=== PATIENT | male | born 1960 | race Caucasian/White ===

== ENCOUNTER → 2017-05-17 | Outpatient (CLI) | payer MEDICARE ==
[~2017-05-17] MED LIST: OXYC15TA76 PO; OXYC1TAB16 PO; PERC5TAB12 PO
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
== END ==
LOC: M PAIN 13:20
PROVIDERS: ATTEND Nurse Practitioner Family
DX: G89.21 Chronic pain due to trauma (principal); M25.562 Pain in left knee; K46.9 Unspecified abdominal hernia without obstruction or gangrene; F17.210 Nicotine dependence, cigarettes, uncomplicated; Z79.891 Long term (current) use of opiate analgesic

== ENCOUNTER 2017-06-01 16:14 | Emergency (ER) | payer MEDICARE ==
[~2017-06-01] VITALS: Ht 177.8 cm; Wt 79.6 kg
[2017-06-01] MEDS ORDERED: OXYC15TA76 PO (16:28)
[2017-06-01] MEDS ORDERED: OXYC1TAB16 PO (17:25)
[2017-06-01 17:39] VITALS: BP 130/83
== END 2017-06-01 17:54 | disposition home or self-care (01) ==
LOC: M ED 16:14
DX: Z76.0 Encounter for issue of repeat prescription (principal); G89.29 Other chronic pain; M25.562 Pain in left knee; F17.210 Nicotine dependence, cigarettes, uncomplicated

== ENCOUNTER 2017-06-13 07:14 | Emergency (ER) | payer MEDICARE ==
[~2017-06-13] VITALS: Ht 177.8 cm; Wt 79.5 kg
[~2017-06-13 07:14] MED LIST changes: -PERC5TAB12 PO
[2017-06-13 07:29] VITALS: BP 128/74
[2017-06-13] MEDS ORDERED: PERC5TAB12 PO (08:01)
== END 2017-06-13 08:00 | disposition home or self-care (01) ==
LOC: M ED 07:14
DX: Z76.0 Encounter for issue of repeat prescription (principal); G89.29 Other chronic pain; M25.562 Pain in left knee; F17.210 Nicotine dependence, cigarettes, uncomplicated

== ENCOUNTER 2021-02-13 11:12 | Emergency (ER) | payer MEDICARE ==
[~2021-02-13] VITALS: Ht 177.8 cm; Wt 86.4 kg
[~2021-02-13 11:12] MED LIST changes: +OXYC-1 PO; +OXYC10TA3 PO; -OXYC15TA76 PO; -OXYC1TAB16 PO; +PERC5TAB12 PO
[2021-02-13] MEDS ORDERED: HYDR7.5T66 PO (11:25)
[2021-02-13] MEDS ORDERED: LIDOCAINE 2% W/EPINEPHRINE 20ML VIAL **PRES FREE INJ ONE (13:00)
[2021-02-13] MEDS ORDERED: BOOSTRIX/ADACEL VACCINE (DIPHTH/PERTUSS/ACELL/TETANUS) 0.5ML SYR IM ONE (13:00)
[2021-02-13] MEDS ORDERED: LIDOCAINE 2% W/EPINEPHRINE 20ML VIAL **PRES FREE As Ordered ONE (13:01)
[2021-02-13 13:30] VITALS: BP 111/69
[2021-02-13] MEDS ORDERED: CEPH500T PO (13:37)
[2021-02-13] MEDS ORDERED: NS 500 ML IV ONE (13:50)
== END 2021-02-13 13:53 | disposition home or self-care (01) ==
LOC: M ED 11:12
DX: S41.112A Laceration without foreign body of left upper arm, initial encounter (principal); W27.0XXA Contact with workbench tool, initial encounter; Y92.9 Unspecified place or not applicable; Y93.9 Activity, unspecified; Y99.9 Unspecified external cause status; G89.29 Other chronic pain; F17.200 Nicotine dependence, unspecified, uncomplicated

== ENCOUNTER → 2022-10-12 | Outpatient (CLI) | payer MEDICARE ==
[~2022-10-12] MED LIST changes: +BACT800T5 PO; +CEPH500T PO; +HYDR-4278 PO
== END ==
LOC: M RAD 08:13
PROVIDERS: ATTEND Family Medicine
DX: R79.89 Other specified abnormal findings of blood chemistry (principal)

== ENCOUNTER → 2022-10-15 | Outpatient (CLI) | payer MEDICARE | LOC: M RAD 12:54 | PROVIDERS: ATTEND Family Medicine | DX: M47.816 Spondylosis without myelopathy or radiculopathy, lumbar region (principal); M51.26 Other intervertebral disc displacement, lumbar region ==

== ENCOUNTER → 2022-11-18 | Outpatient (CLI) | payer MEDICARE | LOC: M RAD 08:25 | PROVIDERS: ATTEND Family Medicine | DX: Z12.2 Encounter for screening for malignant neoplasm of respiratory organs (principal); Z87.891 Personal history of nicotine dependence; R91.8 Other nonspecific abnormal finding of lung field ==

== ENCOUNTER → 2022-11-21 | Outpatient (CLI) | payer MEDICARE ==
[~2022-11-21] MED LIST changes: +PROHANCE 279.3MG/ML 15ML VIAL As Ordered ONE
== END ==
LOC: M RAD 15:17
PROVIDERS: ATTEND Family Medicine
DX: R39.9 Unspecified symptoms and signs involving the genitourinary system (principal); N28.1 Cyst of kidney, acquired
CPT/HCPCS: 74183; A9576

== ENCOUNTER 2022-12-29 12:59 | Emergency (ER) | payer MEDICARE ==
[~2022-12-29] VITALS: Ht 177.8 cm; Wt 82.5 kg
[~2022-12-29 12:59] MED LIST changes: -PROHANCE 279.3MG/ML 15ML VIAL As Ordered ONE
[2022-12-29 13:00] VITALS: BP 131/89
[2022-12-29] MEDS ORDERED: BACL10TA2 (13:14)
[2022-12-29] MEDS ORDERED: GABA-282 (13:14)
[2022-12-29] MEDS ORDERED: HYDR-3363 (13:14)
[2022-12-29] MEDS ORDERED: EZET10TA21 (13:14)
[2022-12-29] MEDS ORDERED: TAMS1CAP17 (13:14)
== END 2022-12-29 13:55 | disposition home or self-care (01) ==
LOC: M ED 12:59
DX: M70.22 Olecranon bursitis, left elbow (principal); E78.5 Hyperlipidemia, unspecified; R91.8 Other nonspecific abnormal finding of lung field; Z79.899 Other long term (current) drug therapy

== ENCOUNTER → 2023-11-28 | Outpatient (CLI) | payer MEDICARE ==
[~2023-11-28] MED LIST changes: +BACL10TA2; +EZET10TA21; +GABA-282; +HYDR-3363; +TAMS1CAP17
== END ==
LOC: M RAD 08:33
PROVIDERS: ATTEND Family Medicine
DX: Z12.2 Encounter for screening for malignant neoplasm of respiratory organs (principal); Z87.891 Personal history of nicotine dependence; R74.01 Elevation of levels of liver transaminase levels; K76.0 Fatty (change of) liver, not elsewhere classified; Z87.448 Personal history of other diseases of urinary system; R91.8 Other nonspecific abnormal finding of lung field; I70.0 Atherosclerosis of aorta; I25.10 Atherosclerotic heart disease of native coronary artery without angina pectoris

== ENCOUNTER → 2024-12-23 | Outpatient (CLI) | payer MEDICARE ==
[~2024-12-23] MED LIST changes: +GABA-1172; -GABA-282
== END ==
LOC: M RAD 09:20
PROVIDERS: ATTEND Family Medicine
DX: R74.01 Elevation of levels of liver transaminase levels (principal); N28.1 Cyst of kidney, acquired